=== PATIENT | male | born 1980 | race Hispanic/Latino ===

== ENCOUNTER 2021-03-02 06:00 | Emergency (ER) | payer OTHER ==
[2021-03-02] MEDS ORDERED: IBUPROFEN 600 MG TAB PO ONE (06:12)
[2021-03-02 06:15] VITALS: BP 119/73
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
== END 2021-03-02 07:45 | disposition home or self-care (01) ==
LOC: ED 06:00
DX: S80.01XA Contusion of right knee, initial encounter (principal); F17.200 Nicotine dependence, unspecified, uncomplicated; Z79.899 Other long term (current) drug therapy; Z88.0 Allergy status to penicillin; Z91.040 Latex allergy status; Z91.041 Radiographic dye allergy status; V49.49XA Driver injured in collision with other motor vehicles in traffic accident, initial encounter; Y92.410 Unspecified street and highway as the place of occurrence of the external cause; Y93.89 Activity, other specified; Y99.8 Other external cause status